=== PATIENT | male | born 1985 | race American Indian/Alaskan Native ===

== ENCOUNTER 2018-10-10 23:02 | Emergency (ER) | payer SELFPAY ==
--- NOTE | 2018-10-11 00:45 | Emergency Department Report ---
ED Male HPI - General Chief complaint: Urogenital-Male Stated complaint: MEDICAL TREATMENT Time Seen by Provider: 10/11/18 00:34 Source: patient Mode of arrival: Ambulatory Limitations: No Limitations - History of Present Illness Initial comments: 33-year-old -[place] male presents to the emergency room complaining of abdominal pain and dysuria that started this morning. Patient also reports that his partner was diagnosed with chlamydia. Patient denies any penile discharge fevers or chills. Patient denies any hematuria MD Complaint: dysuria -: This morning Severity scale (0 -10): 2 Quality: burning - Related Data Previous Rx's Medication Instructions Recorded Last Taken Type Azithromycin [Zithromax TAB] 2,000 mg PO QDAY #4 tablet 10/11/18 Unknown Rx Allergies Allergy/AdvReac Type Severity Reaction Status Date / Time No Known Allergies Allergy Unverified 10/10/18 23:05 ED Review of Systems ROS: Stated complaint: MEDICAL TREATMENT Other details as noted in HPI Comment: All other systems reviewed and negative Gastrointestinal: abdominal pain Genitourinary: dysuria ED Past Medical Hx - Past Medical History Previous Medical History?: No - Surgical History Past Surgical History?: No - Social History Smoking Status: Current Every Day Smoker Substance Use Type: Alcohol - Medications Home Medications: Home Medications Medication Instructions Recorded Confirmed Last Taken Type Azithromycin [Zithromax TAB] 2,000 mg PO QDAY #4 tablet 10/11/18 Unknown Rx ED Physical Exam - General Limitations: No Limitations General appearance: alert, in no apparent distress - Head Head exam: Present: atraumatic, normocephalic - Eye Eye exam: Present: normal appearance - ENT ENT exam: Present: mucous membranes moist - Neck Neck exam: Present: normal inspection - Respiratory Respiratory exam: Present: normal lung sounds bilaterally. Absent: respiratory distress - Cardiovascular Cardiovascular Exam: Present: regular rate, normal rhythm. Absent: systolic murmur, diastolic murmur, rubs, gallop - GI/Abdominal GI/Abdominal exam: Present: soft, normal bowel sounds - Rectal Rectal exam: Present: deferred - Extremities Exam Extremities exam: Present: normal inspection - Back Exam Back exam: Present: normal inspection - Neurological Exam Neurological exam: Present: alert, oriented X3 - Psychiatric Psychiatric exam: Present: normal affect, normal mood - Skin Skin exam: Present: warm, dry, intact, normal color. Absent: rash ED Course Vital Signs 10/10/18 23:05 Temperature 98.0 F Pulse Rate 60 Respiratory 18 Rate Blood Pressure 144/94 O2 Sat by Pulse 100 Oximetry ED Medical Decision Making - Medical Decision Making 33-year-old -[place] male presents to the emergency room complaining of abdominal pain and dysuria that started this morning. Patient also reports that his partner was diagnosed with chlamydia. Patient denies any penile discharge fevers or chills. Patient denies any hematuria. Critical care attestation.: If time is entered above; I have spent that time in minutes in the direct care of this critically ill patient, excluding procedure time. ED Disposition Clinical Impression: Dysuria, Concern about STD in male without diagnosis Disposition: - TO HOME OR SELFCARE Is pt being admited?: No Does the pt Need Aspirin: No Condition: Stable Instructions: Sexually Transmitted Diseases (ED), Safe Sex (ED) Additional Instructions: Please take antibiotics as prescribed. I highly recommended for you to follow up with the health department or primary care provider for further STD evaluations consisting of HIV, herpes, syphilis, hepatitis. Please refrain from intercourse and to your partner and U have been tested for STDs. Prescriptions: Azithromycin [Zithromax TAB] 2,000 mg PO QDAY #4 tablet Referrals: PRIMARY CARE [Primary Care Provider] - 3-[address] [facility] [Outside] - 3-5 Days [facility] [Outside] - 3-5 Days [facility] [Outside] - 3-5 Days [facility] [Outside] - 3-5 Days
[2018-10-11 01:33] LABS: Bilirubin,Urine NEG (Negative); Blood,Urine NEG (Negative); Color,Urine Yellow (Yellow); Mucus,Urine FEW /HPF; Protein,Urine <15 mg/dL mg/dL (Negative); Urobilinogen,Urine < 2.0 mg/dL (<2.0)
[2018-10-11] MEDS ORDERED: ROCEPHIN IM ONE (02:13)
[2018-10-11] MEDS ORDERED: XYLOCAINE 1% MPF 5 mL INFILTRATI ONE (02:13)
[2018-10-11 02:55] VITALS: BP 132/78
== END 2018-10-11 02:50 | disposition home or self-care (01) ==
LOC: ED 23:02
DX: R30.0 Dysuria (principal); Z20.2 Contact with and (suspected) exposure to infections with a predominantly sexual mode of transmission
CPT/HCPCS: 81001; 87086; 87591; 96372; 99283; J0696